=== PATIENT | male | born 1950 | race Caucasian/White ===

== ENCOUNTER 2019-08-29 23:06 | Inpatient (IN) | payer MEDICAID ==
[~2019-08-29] VITALS: Ht 162.6 cm; Wt 75.0 kg
[2019-08-29 23:12] VITALS: Ht 162.6 cm; Wt 75.0 kg
[2019-08-30 00:11] LABS: BASOPHIL % 1.6 % (0-2); PLATELET COUNT 153 x10^3mcL (130-400)
[2019-08-30 00:12] LABS: RED CELL DISTRIBUTION WIDTH 14.7 % (11.5-14.5)
[2019-08-30 01:04] LABS: CARBON DIOXIDE 19.8 mmol/L (21-32); CHLORIDE SERUM 103 mmol/L (98-107); GLUCOSE SERUM 116 mg/dL (74-106); POTASSIUM SERUM 3.9 mmol/L (3.5-5.1); SODIUM SERUM 137 mmol/L (136-145)
[2019-08-30 01:05] LABS: CALCIUM 8.3 mg/dL (8.5-10.1); CREATININE SERUM 1.2 mg/dL (0.7-1.3); GFR1 > 60 mL/min
[2019-08-30 01:09] LABS: ALBUMIN 3.2 g/dL (3.4-5.0); ALKALINE PHOSPHATASE 100 U/L (46-116); ALT/SGPT 38 U/L (16-63); AST/SGOT 42 U/L (15-37); BILIRUBIN TOTAL 0.9 mg/dL (0.20-1.00)
[2019-08-30] MEDS ORDERED: LASIX40 MG PO (02:48)
[2019-08-30] MEDS ORDERED: ZESTRIL20 MG PO (02:48)
[2019-08-30 07:22] VITALS: BP 137/104
[2019-08-30 09:13] VITALS: BP 120/92
[2019-08-30 10:00] LABS: microscopic required? YES; urine erythrocyte 1+ (NEGATIVE)
[2019-08-30 10:21] LABS: AMPHETAMINE QUAL UR NONE DETECTED (See below)
[2019-08-30 12:55] VITALS: BP 109/84
[2019-08-30 17:28] VITALS: BP 131/96
[2019-08-30 20:16] VITALS: BP 138/92
[2019-08-31 06:06] VITALS: BP 115/88
[2019-08-31 06:28] LABS: BASOPHIL % 0.5 % (0-2); PLATELET COUNT 154 x10^3mcL (130-400)
[2019-08-31 06:58] LABS: RED CELL DISTRIBUTION WIDTH 14.7 % (11.5-14.5)
[2019-08-31 07:14] LABS: CALCIUM 8.5 mg/dL (8.5-10.1); CARBON DIOXIDE 27.7 mmol/L (21-32); CREATININE SERUM 1.3 mg/dL (0.7-1.3); POTASSIUM SERUM 4.1 mmol/L (3.5-5.1)
[2019-08-31 08:49] VITALS: BP 112/86
[2019-08-31 13:09] VITALS: BP 121/91
[2019-08-31 16:14] VITALS: BP 108/82
[2019-08-31 20:05] VITALS: BP 128/93
[2019-09-01 05:28] VITALS: BP 130/95
[2019-09-01 06:08] LABS: BASOPHIL % 0.4 % (0-2); PLATELET COUNT 167 x10^3mcL (130-400)
[2019-09-01 06:26] LABS: RED CELL DISTRIBUTION WIDTH 14.9 % (11.5-14.5)
[2019-09-01 06:50] LABS: CALCIUM 8.6 mg/dL (8.5-10.1); CARBON DIOXIDE 29.8 mmol/L (21-32); CREATININE SERUM 1.4 mg/dL (0.7-1.3); POTASSIUM SERUM 3.9 mmol/L (3.5-5.1)
[2019-09-01 09:18] VITALS: BP 138/101
[2019-09-01 13:18] VITALS: BP 129/90
[2019-09-01 17:16] VITALS: BP 122/88
[2019-09-01 21:23] VITALS: BP 118/89
[2019-09-02 05:37] VITALS: BP 101/76
[2019-09-02 06:28] LABS: BASOPHIL % 0.3 % (0-2); PLATELET COUNT 162 x10^3mcL (130-400)
[2019-09-02 06:42] LABS: CALCIUM 8.1 mg/dL (8.5-10.1); CARBON DIOXIDE 33.8 mmol/L (21-32); CREATININE SERUM 1.3 mg/dL (0.7-1.3)
[2019-09-02 07:06] LABS: RED CELL DISTRIBUTION WIDTH 14.6 % (11.5-14.5)
[2019-09-02 08:00] VITALS: BP 135/105
[2019-09-02 13:23] VITALS: BP 111/85
[2019-09-02 17:33] VITALS: BP 106/82
[2019-09-02 21:46] VITALS: BP 111/84
[2019-09-03 05:54] VITALS: BP 114/89
[2019-09-03 05:56] VITALS: BP 99/58
[2019-09-03 07:15] LABS: BASOPHIL % 0.4 % (0-2); CALCIUM 8.3 mg/dL (8.5-10.1); CHLORIDE SERUM 99 mmol/L (98-107); CREATININE SERUM 1.2 mg/dL (0.7-1.3); GFR1 > 60 mL/min; GLUCOSE SERUM 98 mg/dL (74-106); PLATELET COUNT 178 x10^3mcL (130-400); POTASSIUM SERUM 3.7 mmol/L (3.5-5.1); SODIUM SERUM 139 mmol/L (136-145)
[2019-09-03 07:19] LABS: RED CELL DISTRIBUTION WIDTH 14.6 % (11.5-14.5)
[2019-09-03 08:39] VITALS: BP 124/92
[2019-09-03] MEDS ORDERED: XARELTO20 M1 PO (09:04)
[2019-09-03] MEDS ORDERED: LIPI10 PO (09:05)
[2019-09-03] MEDS ORDERED: ZES20 PO (09:06)
[2019-09-03] MEDS ORDERED: TOP50 PO (09:06)
[2019-09-03] MEDS ORDERED: L40 PO (09:07)
[2019-09-03 09:59] VITALS: BP 124/92
== END 2019-09-03 11:55 | disposition home or self-care (01) | DRG 194 ==
LOC: ED 23:06 → DU 08-30 01:53
PROVIDERS: Emergency Medicine; Family Medicine; ADMIT Student in an Organized Health Care Education/Training Program
DX: I11.0 Hypertensive heart disease with heart failure (principal); N17.0 Acute kidney failure with tubular necrosis; I50.23 Acute on chronic systolic (congestive) heart failure; I48.91 Unspecified atrial fibrillation; I48.92 Unspecified atrial flutter; Z79.82 Long term (current) use of aspirin; Z68.28 Body mass index [BMI] 28.0-28.9, adult; Z79.899 Other long term (current) drug therapy; I42.9 Cardiomyopathy, unspecified; I24.9 Acute ischemic heart disease, unspecified
CPT/HCPCS: 82962; 83880; 97116-GP; 97530-GP; G0378; J1200; J1940; J2405; Q0092

== ENCOUNTER 2019-12-28 09:28 | Inpatient (IN) | payer MEDICAID, SELFPAY ==
[~2019-12-28] VITALS: Ht 162.6 cm; Wt 75.0 kg
[~2019-12-28 09:28] MED LIST: DIG125 PO; L40 PO; LASIX40 MG PO; LIPI10 PO; METOPROLOL TART25 M1 PO; TOP50 PO; XARELTO20 M1 PO; ZES20 PO; ZESTRIL20 MG PO
[2019-12-28 09:33] VITALS: Ht 162.6 cm; Wt 75.0 kg
[2019-12-28 11:00] LABS: BASOPHIL % 0.4 % (0-2); PLATELET COUNT 166 x10^3mcL (130-400); RED CELL DISTRIBUTION WIDTH 21.6 % (11.5-14.5)
[2019-12-28 11:16] LABS: UA SPECIFIC GRAVITY 1.015 (1.005-1.035); microscopic required? YES; urine erythrocyte TRACE (NEGATIVE)
[2019-12-28 11:17] LABS: CALCIUM 8.2 mg/dL (8.5-10.1); CARBON DIOXIDE 25.9 mmol/L (21-32); CHLORIDE SERUM 102 mmol/L (98-107); CREATININE SERUM 1.2 mg/dL (0.7-1.3); GFR1 > 60 mL/min; GLUCOSE SERUM 114 mg/dL (74-106); POTASSIUM SERUM 3.6 mmol/L (3.5-5.1); SODIUM SERUM 139 mmol/L (136-145)
[2019-12-28 11:23] LABS: ALKALINE PHOSPHATASE 138 U/L (46-116); ALT/SGPT 15 U/L (16-63); AST/SGOT 25 U/L (15-37); BILIRUBIN TOTAL 1.7 mg/dL (0.20-1.00); TOTAL PROTEIN, SERUM 6.6 g/dL (6.4-8.2)
[2019-12-28 11:26] LABS: ALBUMIN 3.3 g/dL (3.4-5.0)
[2019-12-28 13:35] LABS: T3 TOTAL 1.09 ng/mL
[2019-12-28 13:43] LABS: CHOLESTEROL/HDL RATIO 2.4
[2019-12-28 13:44] VITALS: BP 129/97
[2019-12-28 13:52] LABS: FREE T4 1.27 ng/dL (0.76-1.46); FREE THYROXINE INDEX 3.1 ug/dL (1.4-4.5); T4(THYROXINE) 7.3 ug/dL (4.7-13.3)
[2019-12-28 16:30] VITALS: BP 124/92
[2019-12-28 21:59] VITALS: BP 118/84
[2019-12-29 05:47] VITALS: BP 99/67
[2019-12-29 07:18] LABS: BASOPHIL % 0.6 % (0-2); PLATELET COUNT 166 x10^3mcL (130-400)
[2019-12-29 07:31] LABS: CALCIUM 8.1 mg/dL (8.5-10.1); CARBON DIOXIDE 30.3 mmol/L (21-32); CHLORIDE SERUM 103 mmol/L (98-107); CREATININE SERUM 1.1 mg/dL (0.7-1.3); GFR1 > 60 mL/min; GLUCOSE SERUM 84 mg/dL (74-106); POTASSIUM SERUM 3.8 mmol/L (3.5-5.1); SODIUM SERUM 142 mmol/L (136-145)
[2019-12-29 08:07] LABS: RED CELL DISTRIBUTION WIDTH 21.5 % (11.5-14.5)
[2019-12-29 08:44] VITALS: BP 109/76
[2019-12-29 11:07] LABS: rbc morphology (normal/abnorm) ABNORMAL (NORMAL)
[2019-12-29 11:08] LABS: ovalocyte/elliptocyte 1+
[2019-12-29 12:07] VITALS: BP 112/72
[2019-12-29 16:23] VITALS: BP 108/81
[2019-12-29 20:52] VITALS: BP 106/78
[2019-12-30 06:11] VITALS: BP 139/102
[2019-12-30 06:56] LABS: BASOPHIL % 0.5 % (0-2); PLATELET COUNT 175 x10^3mcL (130-400)
[2019-12-30 07:10] LABS: RED CELL DISTRIBUTION WIDTH 21.8 % (11.5-14.5)
[2019-12-30 07:14] LABS: CALCIUM 8.5 mg/dL (8.5-10.1); CARBON DIOXIDE 26.9 mmol/L (21-32); CHLORIDE SERUM 101 mmol/L (98-107); CREATININE SERUM 1.2 mg/dL (0.7-1.3); GFR1 > 60 mL/min; GLUCOSE SERUM 131 mg/dL (74-106); POTASSIUM SERUM 3.3 mmol/L (3.5-5.1); SODIUM SERUM 138 mmol/L (136-145)
[2019-12-30 07:55] VITALS: BP 142/98
[2019-12-30 12:02] VITALS: BP 130/98
[2019-12-30 12:26] LABS: rbc morphology (normal/abnorm) ABNORMAL (NORMAL)
[2019-12-30 16:14] VITALS: BP 134/90
[2019-12-30 21:23] VITALS: BP 133/87
[2019-12-31 05:59] VITALS: BP 154/98
[2019-12-31 06:58] LABS: CALCIUM 9.6 mg/dL (8.5-10.1); CARBON DIOXIDE 28.7 mmol/L (21-32); CREATININE SERUM 1.4 mg/dL (0.7-1.3); POTASSIUM SERUM 3.4 mmol/L (3.5-5.1)
[2019-12-31 07:04] LABS: BASOPHIL % 0.3 % (0-2); PLATELET COUNT 222 x10^3mcL (130-400); RED CELL DISTRIBUTION WIDTH 21.5 % (11.5-14.5)
[2019-12-31 09:07] VITALS: BP 141/88
[2019-12-31 10:54] LABS: rbc morphology (normal/abnorm) ABNORMAL (NORMAL)
[2019-12-31 13:07] VITALS: BP 131/99
[2019-12-31 14:48] LABS: SOURCE FLUID PLEURAL
[2019-12-31 15:57] LABS: APPEARANCE FLUID HAZY; COLOR FLUID YELLOW; LYMPHOCYTE FLUID 62 %; MONOCYTE FLUID 24 %; RBC FLUID 6633 /cumm; WBC FLUID 97 /cumm
[2019-12-31 16:56] VITALS: BP 111/77
[2019-12-31 20:00] VITALS: BP 116/81
[2019-12-31 21:17] VITALS: BP 106/75
[2020-01-01 05:36] VITALS: BP 143/90
[2020-01-01 08:09] VITALS: BP 137/95
[2020-01-01 08:30] LABS: CALCIUM 9.3 mg/dL (8.5-10.1); CARBON DIOXIDE 26.5 mmol/L (21-32); CREATININE SERUM 1.3 mg/dL (0.7-1.3); POTASSIUM SERUM 3.8 mmol/L (3.5-5.1)
[2020-01-01 08:53] LABS: BASOPHIL % 0.7 % (0-2); PLATELET COUNT 177 x10^3mcL (130-400)
[2020-01-01 14:19] VITALS: BP 153/96
[2020-01-01 17:57] VITALS: BP 133/95
[2020-01-01 21:35] VITALS: BP 130/96
[2020-01-02 05:45] VITALS: BP 111/79
[2020-01-02 08:16] VITALS: BP 137/102
[2020-01-02 13:37] VITALS: BP 129/87
[2020-01-02 17:44] VITALS: BP 133/95
[2020-01-02 21:10] VITALS: BP 117/87
[2020-01-03 05:48] VITALS: BP 126/88
[2020-01-03 08:52] VITALS: BP 137/81
[2020-01-03 12:15] VITALS: BP 118/83
[2020-01-03 16:32] VITALS: BP 138/97
[2020-01-03 20:22] VITALS: BP 152/91
[2020-01-04 05:54] VITALS: BP 99/66
[2020-01-04 07:06] LABS: BASOPHIL % 0.2 % (0-2); PLATELET COUNT 141 x10^3mcL (130-400)
[2020-01-04 07:19] LABS: CALCIUM 8.4 mg/dL (8.5-10.1); CARBON DIOXIDE 28.8 mmol/L (21-32); CHLORIDE SERUM 102 mmol/L (98-107); CREATININE SERUM 1.2 mg/dL (0.7-1.3); GFR1 > 60 mL/min; GLUCOSE SERUM 107 mg/dL (74-106); POTASSIUM SERUM 3.1 mmol/L (3.5-5.1); SODIUM SERUM 140 mmol/L (136-145)
[2020-01-04 07:27] LABS: RED CELL DISTRIBUTION WIDTH 21.7 % (11.5-14.5)
[2020-01-04 08:58] VITALS: BP 131/81
[2020-01-04] MEDS ORDERED: L40 PO (11:33)
[2020-01-04] MEDS ORDERED: COR200 PO (11:34)
[2020-01-04] MEDS ORDERED: METOPROLOL TART25 M1 PO (11:34)
[2020-01-04] MEDS ORDERED: XARELTO20 M1 PO (11:35)
[2020-01-04] MEDS ORDERED: DIG125 PO (11:35)
[2020-01-04] MEDS ORDERED: COL100 PO (11:35)
[2020-01-04 12:54] VITALS: BP 130/78
[2020-01-04 16:25] VITALS: BP 111/57
[2020-01-04 17:16] VITALS: BP 119/89
[2020-01-04 21:36] VITALS: BP 119/84
[2020-01-05 05:53] VITALS: BP 108/74
[2020-01-05 09:24] VITALS: BP 122/77
[2020-01-05 12:39] VITALS: BP 128/85
[2020-01-05 17:30] VITALS: BP 130/91
[2020-01-05 20:58] VITALS: BP 143/92
[2020-01-06 05:34] VITALS: BP 117/78
[2020-01-06 08:00] VITALS: BP 134/95
[2020-01-06 12:42] VITALS: BP 123/86
[2020-01-06 17:16] VITALS: BP 123/86
== END 2020-01-06 17:55 | disposition home or self-care (01) | DRG 194 ==
LOC: ED 09:28 → DU 12:20
PROVIDERS: Emergency Medicine; ADMIT Student in an Organized Health Care Education/Training Program; ATTEND Student in an Organized Health Care Education/Training Program
PROC: 0W993ZZ Drainage of Right Pleural Cavity, Percutaneous Approach (ICD-10-PCS; principal; 2019-12-28)
DX: I11.0 Hypertensive heart disease with heart failure (principal); N17.0 Acute kidney failure with tubular necrosis; J96.21 Acute and chronic respiratory failure with hypoxia; I48.92 Unspecified atrial flutter; R60.1 Generalized edema; I48.20 Chronic atrial fibrillation, unspecified; E11.9 Type 2 diabetes mellitus without complications; E87.6 Hypokalemia; I50.23 Acute on chronic systolic (congestive) heart failure; I42.9 Cardiomyopathy, unspecified; Z79.01 Long term (current) use of anticoagulants; Z79.899 Other long term (current) drug therapy; Z91.19 Patient's noncompliance with other medical treatment and regimen
CPT/HCPCS: 32555; 36600; 82962; 83880; 84439; 87116; 87206; 88344; 97116-GP; 97530-GP; C1729; G0378; J1940; J3535; Q0092

== ENCOUNTER 2020-03-10 08:05 | Emergency (ER) | payer MEDICAID ==
[~2020-03-10] VITALS: Ht 160 cm; Wt 69.4 kg
[~2020-03-10 08:05] MED LIST changes: +COL100 PO; +COR200 PO; +ZES5 PO
[2020-03-10 08:13] VITALS: Ht 160 cm; Wt 69.4 kg
[2020-03-10 09:07] VITALS: BP 112/83
== END 2020-03-10 09:07 | disposition home or self-care (01) ==
LOC: ED 08:05
DX: S21.112D Laceration without foreign body of left front wall of thorax without penetration into thoracic cavity, subsequent encounter (principal); I11.0 Hypertensive heart disease with heart failure; I50.9 Heart failure, unspecified; X58.XXXD Exposure to other specified factors, subsequent encounter
CPT/HCPCS: Q0092